=== PATIENT | male | born 1945 | race Caucasian/White ===

== ENCOUNTER → 2019-03-13 14:37 | Outpatient (CLI) | payer OTHER, SELFPAY ==
--- NOTE | 2019-03-13 14:45 | CA_ITS ---
PROCEDURE: 2-D M-mode and color Doppler study INDICATIONS FOR THE TEST: Chest pain COPD Heart Murmur+ Tobacco Smokingex Palpitations Fatigue Syncope Edema Hypertension Diabetes Mellitus Rheumatic Fever SOB DONOVAN Obesity Hyperlipidemia Family History HD Additional History CDL EXAM PATIENT INFORMATION HEIGHT: 71 WEIGHT:200 GENDER: Male B/P:130/80 2-D/M-MODE INTERPRETATION: 2-D MEASUREMENTS OBSERVED VALUES IN CMS Right Ventricular Dimension (RVDd) 2.1 Interventricular Septum (Thickness)(IVsd) 1.0 Left Ventricular Internal Dimensions(LVIDd) 5.5 Left Ventricular Posterior Wall (Thickness)(LVPWd) 1.1 Aortic Root 2.4 Aortic Cusp Separation 1.6 Left Atrial Dimensions (LAD) 3.3 2D 1. Left atrium is mildly enlarged, left ventricle is normal size, mild concentric left ventricular hypertrophy, visually estimated ejection fraction 55% with no regional wall motion abnormality. 2. The right atrium and right ventricle are normal size and contractility. 3. The aortic valve is thickened and calcified with severe restriction the leaflet mobility. 4. The mitral valve has mitral calcification, leaflets are minimally thickened. 5. The tricuspid valve is minimally thickened. 6. The pulmonic valve is poorly present. 7. No significant pericardial effusion noted. DOPPLER INTERROGATION: 1. The maximum aortic out flow velocity recorded study 3.9 m/s, resulting in a mean gradient across valve of 35 mmHg, valve area is 0.7 sq cm represents severe aortic stenosis, there is mild aortic insufficiency. 2. The mitral inflow velocity within normal range, there is no mitral stenosis, there is mild mitral regurgitation, grade 1 diastolic dysfunction seen without tissue Doppler evidence of raised left atrial pressure. 3. Mild tricuspid regurgitation. Tricuspid regurgitation jet velocity is inadequate for calculation of the right ventricular systolic pressure. CONCLUSION: 1. Mildly enlarged left atrium, normal left ventricular size, mild concentric left ventricular hypertrophy, visually estimated ejection fraction 55% with no regional wall motion abnormality, grade 1 diastolic dysfunction seen without tissue Doppler evidence of raised left atrial pressure. 2. Thickened and calcified aortic valve with mean gradient across valve of 35 mm, he, valve area 0.7 sq cm represents severe aortic stenosis, there is mild aortic insufficiency. 3. Mild mitral and tricuspid regurgitation 4. No significant pericardial effusion noted.
== END ==
PROVIDERS: PCP Family Medicine; Visit Provider Family Medicine
DX: R01.1 Cardiac murmur, unspecified (principal)
CPT/HCPCS: 93306

== ENCOUNTER → 2022-04-24 06:44 | Outpatient (CLI) | payer OTHER, SELFPAY | PROVIDERS: PCP Family Medicine; Visit Provider Family Medicine | DX: D48.5 Neoplasm of uncertain behavior of skin (principal) ==